=== PATIENT | female | born 1990 | race African-American/Black ===

== ENCOUNTER 2025-08-17 09:10 | Emergency (ER) | payer OTHER, SELFPAY ==
--- OUTSIDE RECORDS SUMMARY | 2024-01-09 06:45 | XMS_ITS | Continuity of Care Document ---
Author Organization [facility] Address [address] [place] [address] Phone Care Team Providers Care Fisher Crab Name Role Phone Dara Montague DDS Unavailable Unavailable Allergies, Adverse Reactions, Alerts Substance Reaction Status Criticality No Known Allergies Active No Inform ation Medications Medication Instructions Dosage Effective Dates (start - stop) Status Comments ibuprofen 600 mg tablet take 1 tablet by oral route 3 times every day with food as needed 600 MG - Active amoxicillin 500 mg capsule take 1 capsule by oral route every 8 hours 500 MG - No Longer Active Procedures Procedure Date Limited Oral Eval Bitewings-two Films Intraoral-periapical 1st Film 4 Eemnwkqkn-lusvkrrepx-ikvv Additional Dec Qfqxvzpev-muoqhmgywa-ozlo Additional Dec Oral Hygiene Instruction Intraoral-periapical 1st Film 3 Bitewig-single Film Oral Hygiene Instruction Limited Oral Eval EST FP MEDICAID RISK ASSISSMENT OFFICE/OUTPATIENT VISIT, EST URINE TEST OFFICE/OUTPATIENT VISIT, EST URINE TEST EST FP MEDICAID ODH SPECIMEN HANDLING (GC/CHLAMYDIA) Aug URINE TEST ROUTINE VENIPUNCTURE CARE COORDINATION OFFICE/OUTPATIENT VISIT, EST SPECIMEN HANDLING RISK ASSISSMENT CARE COORDINATION ROUTINE VENIPUNCTURE OFFICE/OUTPATIENT VISIT, EST CARE COORDINATION SPECIMEN HANDLING CARE COORDINATION OFFICE/OUTPATIENT VISIT, EST OFFICE/OUTPATIENT VISIT, EST RISK ASSISSMENT CARE COORDINATION ROUTINE VENIPUNCTURE OFFICE/OUTPATIENT VISIT, EST URINE TEST OFFICE/OUTPATIENT VISIT, EST ROUTINE VENIPUNCTURE SPECIMEN HANDLING RISK ASSISSMENT CARE COORDINATION OFFICE/OUTPATIENT VISIT, EST ROUTINE VENIPUNCTURE CARE COORDINATION OFFICE/OUTPATIENT VISIT, EST CARE COORDINATION OFFICE/OUTPATIENT VISIT, EST CARE COORDINATION OFFICE/OUTPATIENT VISIT, EST CARE COORDINATION OFFICE/OUTPATIENT VISIT, EST CARE COORDINATION ODH ROCEPHINE 250 MG (PER DOSE) - 009 OFFICE/OUTPATIENT VISIT, EST SPECIMEN HANDLING CARE COORDINATION ROUTINE VENIPUNCTURE RISK ASSISSMENT COUNSELING AND EDUCATION CARE COORDINATION OFFICE/OUTPATIENT VISIT, EST OFFICE/OUTPATIENT VISIT, EST URINE TEST BX/CURETT OF CERVIX W/SCOPE TISSUE EXAM BY PATHOLOGIST URINE TEST PREV VISIT, NEW, AGE 12-17 DESTRUCT PREMALG LESION URINALYSIS, NONAUTO W/SCOPE URINE TEST SPECIMEN HANDLING Advance Directives Directive Yes / No Effective Date File Name No Information Encounters Encounter Description Practice Location Reason(s) For Visit Diagnoses Date Provider Providers Copied on Encounter [facility], [address], [place], [id number], [place] tel:[phone] [facility] Dental Clinic dl (chief complaint) Encounter for screening for dental disorders Clari Diamond. . tel:[phone] [facility], [address], [place], [id number], [place] tel:[phone] [facility] Dental Clinic DL (chief complaint) Encounter for screening for dental disorders Clari SHAH Ravindra. [address], [place], [id number], [place]. [phone] [facility], [address], [place], [id number], [place] tel:[phone] [facility] No Information Lamp Lizzy. [address], [place], [id number], [place]. tel:[phone] OFFICE/OUTPAT IENT VISIT, [facility], [address], [place], [id number], [place] tel:[phone] [facility] No Information Lamp Lizzy. [address], [place], [id number], [place]. [phone] OFFICE/OUTPAT IENT VISIT, [facility], [address], [place], [id number], [place] tel:[phone] [facility] No Information Lamp Lizzy. [address], [place], [id number], [place]. tel:[phone] [facility], [address], [place], [id number], [place] tel:[phone] [facility] No Information Lamp Lizzy. [address], [place], [id number], [place]. tel:[phone] [facility], [address], [place], [id number], [place] tel:[phone] [facility] No Information Visci DO Contreras. [address] [facility], [place], [place], [id number], [place]. tel:[phone] OFFICE/OUTPAT IENT VISIT, [facility], [address] [facility], [place], [place], [id number], [place] tel:[phone] [facility] No Information Megan ROSASTal Eubanks. [address] [facility], [place], [place], [id number]. tel:[phone] OFFICE/OUTPAT IENT VISIT, [facility], [address] [facility], [place], [place], [id number], [place] tel:[phone] [facility] No Information Brayan Joy. [address], [place], [id number]. tel:[phone] OFFICE/OUTPAT IENT VISIT, [facility], [address], [place], [id number], [place] tel:[phone] [facility] No Information Mariogloria RALPHTal Eubanks. [address], [place], [id number]. tel:[phone] OFFICE/OUTPAT IENT VISIT, [facility], [address], [place], [id number], [place] tel:[phone] [facility] No Information Keshia Ball. [address], [place], [id number], [place]. tel:[phone] OFFICE/OUTPAT IENT VISIT, [facility], [address], [place], [id number], [place] tel:[phone] [facility] No Information Visci DO Contreras. [address], [place], [id number], [place]. tel:[phone] OFFICE/OUTPAT IENT VISIT, [facility], [address], [place], [id number], [place] tel:[phone] [facility] No Information Kwesi Hernandez. [address], [place], [id number], [place]. tel:[phone] OFFICE/OUTPAT IENT VISIT, [facility], [address], [place], [id number], [place] tel:[phone] [facility] No Information Kwesi Hernandez. [address], [place], [id number], [place]. tel:[phone] OFFICE/OUTPAT IENT VISIT, [facility], [address], [place], [id number], [place] tel:[phone] [facility] No Information Kwesi Hernandez. [address], [place], [id number], [place]. tel:[phone] OFFICE/OUTPAT IENT VISIT, [facility], [address], [place], [id number], [place] tel:[phone] [facility] No Information Kwesi Hernandez. [address], [place], [id number], [place]. tel:[phone] OFFICE/OUTPAT IENT VISIT, [facility], [address], [place], [id number], [place] tel:[phone] [facility] No Information Brayan Joy. [address], [place], [id number]. tel:[phone] OFFICE/OUTPAT IENT VISIT, [facility], [address], [place], [id number], [place] tel:[phone] [facility] No Information Kwesi Hernandez. [address], [place], [address], [place]. tel:[phone] OFFICE/OUTPAT IENT VISIT, [facility], [address], [place], [id number], [place] tel:[phone] [facility] No Information Brayan Joy. [address], [place], [id number]. tel:[phone] OFFICE/OUTPAT IENT VISIT, [facility], [address], [place], [id number], [place] tel:[phone] [facility] No Information Kwesi Hernandez. [address], [place], [id number], [place]. tel:[phone] OFFICE/OUTPAT IENT VISIT, [facility], [address], [place], [id number], [place] tel:[phone] [facility] No Information Kwesi Hernandez. [address], [place], [id number], [place]. tel:[phone] [facility], [address], [place], [id number], [place] tel:[phone] [facility] No Information Javieri DO Contreras. [address], [place], [id number], [place]. tel:[phone] PREV VISIT, NEW, AGE 12-17 [facility], [address], [place], [id number], [place] tel:[phone] [facility] No Information Brayan Joy. [address], [place], [id number]. tel:[phone] Family History Family Member Type Diagnosis Age At Onset No Information Payers Payer name Insurance type Covered alliance party ID Girish plasencia(s) Carlos [employer] [facility] [id number] D Medicaid [facility] [id number] Social History Type Description Quantity Date Captured Comments Alcohol Use Details Unknown Caffeine Use Details Unknown Tobacco Use Status No Information Smoking Status No Information Sex Female Sexual Orientation Straight or heterosexual Gender Identity Female Chief Complaint And Reason For Visit From encounter dated '01/09/2024 11:45'. dl (chief complaint) Reason For Referral Reason For Referral No Information Plan Of Treatment Date Type Action Status Goal Depression screening. Due on due Goal Influenza vaccine. Due on Ap due Goal Hepatitis C screening. Due o n due Goal PRAPARE ASSESSMENT. Due on A due Goal HPV. Due on due Goal Tdap. Due on due Goal Unhealthy drug use screening . Due on due Goal RLP. Due on due Goal Tdap Vaccine. Due on 2023 due Goal Hep A. Due on du e Goal PRAPARE ASSESSMENT. Due on S due Goal Hep A. Due on du e Goal Depression screening. Due on due Goal RLP. Due on due Goal Tdap. Due on due Goal Tdap Vaccine. Due on 2022 due Goal Influenza vaccine. Due on due History Of Present Illness Encounter Date Complaint History Of Prese nt Illness dl DL DL Functional Status Date Functional Assessmen t No Information Instructions Date Instruction Additional Infor mation No Information Assessments Type Assessment Date No Information Patient Care Teams Name Effective Dates (start - stop) Status Members No Information
[2025-08-17 09:15] VITALS: BP 130/96; PULSE 70; TEMP 36.7; O2SAT 98; BMI 35.0
--- NOTE | 2025-08-17 09:27 | XR_ITS ---
The [address] [address] Patient Name: VERNA PERRY MRN: [id number] date: 1990 Sex: F Assigned Patient Location: ER Current Patient Location: ER Accession/Order Number: [id number] Exam Date: 08/17/2025 10:05 Report Date: 08/17/2025 10:45 At the request of: EYAL MICHAELS MD Procedure: XR chest 1V PA CHEST: CLINICAL HISTORY: Altered mental status COMPARISON: None FINDINGS: Unremarkable cardiomediastinal silhouette. Lungs are clear. No effusion or pneumothorax. XR/XR chest 1V IMPRESSION: NEGATIVE FOR ACUTE PLEURAL-PARENCHYMAL DISEASE. Impression dictated by: Ze Jaramillo M.D. 08/17/2025 10:45 AM Dictation Location: [place] [address] Electronically authenticated by: [id number] Y Date: 08/17/2025 10:45
--- NOTE | 2025-08-17 09:27 | ECG_ITS ---
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 Measurements Intervals [place] Rate: 87 P: 57 KS: 126 QRS: 47 QRSD: 86 T: 20 QT: 348 QTc: 392 Interpretive Statements 1100 Sinus rhythm 9110 normal ECG No previous ECG available for comparison Electronically Signed On 08-17-2025 21:11:54 EST by VARGAS MURILLO M.D.
--- NOTE | 2025-08-17 09:27 | CT_ITS ---
The [address] [address] Patient Name: VERNA PERRY MRN: [id number] date: 1990 Sex: F Assigned Patient Location: ER Current Patient Location: ER Accession/Order Number: [id number] Exam Date: 08/17/2025 10:20 Report Date: 08/17/2025 10:47 At the request of: EYAL MICHAELS MD Procedure: CT head/brain wo con CT BRAIN WITHOUT CONTRAST: CLINICAL HISTORY: Altered mental status COMPARISON: None TECHNIQUE: Contiguous axial unenhanced images were obtained through the brain. This CT exam was performed using one or more following dose reduction techniques: Automated exposure control, adjustment of the mA and/or kV according to patient size, or use of iterative reconstruction technique. FINDINGS: There is no evidence of midline shift, intra or extra-axial fluid collection, hemorrhage or CT evidence of of acute large vascular distribution stroke. Visualized intraorbital contents appear unremarkable. Moderate multifocal sinus disease noted with sparing left frontal sinus. Multifocal air-fluid levels noted. Mastoids are clear. The surrounding soft tissues are normal. No calvarial fracture. CT/CT head/brain wo con IMPRESSION: NO ACUTE INTRACRANIAL ABNORMALITY. MULTIFOCAL PARANASAL SINUS DISEASE WITH AIR-FLUID LEVELS SUGGESTING ACUTE BACTERIAL SINUSITIS. Impression dictated by: Ze Jaramillo M.D. 08/17/2025 10:47 AM Dictation Location: [place] [address] Electronically authenticated by: [id number] Y Date: 08/17/2025 10:47
--- NOTE | 2025-08-17 09:28 | ED.GENADUL1 ---
HPI HPI - General Adult General Chief complaint: Nausea/Vomiting/Diarrhea Stated complaint: VOMITING Time Seen by Provider: 08/17/25 09:20 Source: patient Mode of arrival: Wheelchair History of Present Illness HPI narrative: 35-year-old female presented to the emergency department for confusion. She states that she does not really remember much of what happened last night but she remembers standing on the side of the road and she went to a gas station and she got somebody to give her a ride here. She states she went to two hole in the wall bars last night. She does not seem to have any pain or physical complaints. Related Data Home Medications ?Medication ?Instructions ?Recorded ?Confirmed albuterol sulfate 90 mcg/actuation inhalation 08/17/25 aerosol inhaler cholecalciferol (vitamin D3) 25 08/17/25 mcg (1,000 unit) tablet ferrous sulfate 325 mg (65 mg mg 08/17/25 iron) tablet Allergies Allergy/AdvReac Type Severity Reaction Status Date / Time No Known Drug Allergies Allergy Verified 08/17/25 09:19 Opioid HPI Opioid Management Most Recent Opioid Data: Ur Phencyclidine Scrn, (NEGATIVE) Negative Today, 11:12 Review of Systems ROS Narrative A ten point review of systems is negative except as noted above. Exam Narrative Exam Narrative: Nurses note and vital signs reviewed General:The patient appears in no apparent distress. Patient is resting comfortably on cart. Skin:Warm, dry, no pallor noted.There is no rash noted. Head:Normocephalic, atraumatic Eye: Normal conjunctiva, no drainage Ears, Nose, Mouth, and Throat: oral mucosa is moist. Nares patent. Cardiovascular:Regular Rate and Rhythm Respiratory:Patient is in no distress, no accessory muscle use, lungs are clear to auscultation, no wheezing, rales or rhonchi Back:non-tender GI:Normal bowel sounds, no tenderness to palpation, no masses appreciated.No rebound, guarding, or rigidity noted. Musculoskeletal: No palpable tenderness to extremity Neurological: Awake and alert. She knows she is in a hospital but does not know which one. She thought it was 2022 but knows that she recently had a birthday. Her birthday was [birth year]. She moves all 4 extremities well Psychiatric:Cooperative Constitutional Vital Signs, click to edit/add: Last Vital Signs Temp 98.1 F 08/17/25 09:15 Pulse 70 08/17/25 09:15 Resp 20 08/17/25 09:15 BP 130/96 H 08/17/25 09:15 Pulse Ox 98 08/17/25 09:15 Course Vital Signs Vital signs: Vital Signs Temperature 98.1 F 08/17/25 09:15 Pulse Rate 70 08/17/25 09:15 Respiratory Rate 20 08/17/25 09:15 Blood Pressure 130/96 H 08/17/25 09:15 Pulse Oximetry 98 08/17/25 09:15 Temperature 98.1 F 08/17/25 09:15 Pulse Rate 70 08/17/25 09:15 Respiratory Rate 20 08/17/25 09:15 Blood Pressure 130/96 H 08/17/25 09:15 Pulse Oximetry 98 08/17/25 09:15 Medical Decision Making MDM Narrative Medical decision making narrative: The patient's workup was completely negative. At 11:30 AM I asked her what month and what year it is and she cannot tell me. I then told her that she should not be leaving if she does not know the month and year and she was quickly able to tell me the month and year. She is discharged in the care of her friend. Differential Diagnosis Differential Diagnosis: Altered mental status, substance abuse Lab Data Lab results reviewed: Yes I reviewed the patient's lab results Labs: Lab Results 08/17/25 08/17/25 Range/Units 09:37 11:12 WBC 5.3 (4.0-11.0) 10^3/uL RBC 3.97 L (4.20-5.40) 10^6/uL Hgb 11.6 L (12.0-16.0) g/dL Hct 35.4 L (36.0-48.0) % MCV 89.2 (81.0-99.0) fL MCH 29.2 (26.7-34.0) pg MCHC 32.8 (29.9-35.2) g/dL RDW 15.0 (11.0-15.0) % Plt Count 307 (150-450) 10^3/uL MPV 10.8 (9.5-13.5) fL Neut % (Auto) 49.7 (43.0-75.0) % Lymph % (Auto) 35.8 (20.5-60.0) % [place] % (Auto) 9.6 (1.7-12.0) % Eos % (Auto) 4.3 (0.9-7.0) % Baso % (Auto) 0.6 (0.2-2.0) % Neut # (Auto) 2.6 (1.4-6.5) 10^3/uL Lymph # (Auto) 1.9 (1.2-3.8) 10^3/uL [place] # (Auto) 0.5 (0.3-0.8) 10^3/uL Eos # (Auto) 0.2 (0.0-0.7) 10^3/uL Baso # (Auto) 0.0 (0.0-0.1) 10^3/uL Abs Immat Gran (auto) 0.00 (0.00-0.03) 10^3/uL Imm/Tot Granulo (auto) 0.0 (0.0-0.5) % Sodium 147 H (136-145) mmol/L Potassium 3.6 (3.5-5.1) mmol/L Chloride 111 H (98-107) mmol/L Carbon Dioxide 26.3 (21.0-32.0) mmol/L Anion Gap 13.3 BUN 9.0 (7.0-18.0) mg/dL Creatinine 0.78 (0.55-1.02) mg/dL Est GFR ( Amer) >60 (>=60 mL/min/1.73m^2) Est GFR (Non-Af Amer) >60 (>=60 mL/min/1.73m^2) BUN/Creatinine Ratio 11.5 Glucose 100 (74-106) mg/dL Calcium 8.3 L (8.5-10.1) mg/dL Serum HCG, Qual Negative (NEGATIVE) Urine Color Lt. yellow (YELLOW) Urine Clarity Clear (CLEAR) Urine pH 7.0 (5.0-9.0) Ur Specific [place] 1.010 (1.005-1.025) Urine Protein Negative (NEG/TRACE) mg/dL Urine Glucose (UA) Negative (NEGATIVE) mg/dL Urine Ketones Negative (NEGATIVE) mg/dL Urine Occult Blood Small A (NEGATIVE) Urine Nitrite Negative (NEGATIVE) Urine Bilirubin Negative (NEGATIVE) Urine Urobilinogen 0.2 (0.2-1.0) EU/dL Ur Leukocyte Esterase Trace A (NEGATIVE) Urine RBC 2-5 A (0-2) #/HPF Urine WBC 0-2 A (NONE SEEN) #/HPF Ur Squamous Epith Cells Few A (NONE/RARE) #/LPF Urine Crystals None seen (None Seen) #/HPF Urine Bacteria Trace A (NONE SEEN) #/HPF Urine Casts None seen (NONE SEEN) #/LPF Urine Mucus None seen (NONE SEEN) Ur Culture Indicated? No Urine Opiates Screen Negative (NEGATIVE) Ur Buprenorphine Scrn Negative (NEGATIVE) Ur Oxycodone Screen Negative (NEGATIVE) Urine Methadone Screen Negative (NEGATIVE) Ur Barbiturates Screen Negative (NEGATIVE) U Tricyclic Antidepress Negative (NEGATIVE) Ur Phencyclidine Scrn Negative (NEGATIVE) Ur Amphetamines Screen Negative (NEGATIVE) U Methamphetamines Scrn Negative (NEGATIVE) U Benzodiazepines Scrn Negative (NEGATIVE) Urine Cocaine Screen Negative (NEGATIVE) U Cannabinoids Screen Negative (NEGATIVE) Imaging Data Chest x-ray: Radiologist's impression: ITS Impressions Chest X-Ray 08/17/25 09:27 IMPRESSION: NEGATIVE FOR ACUTE PLEURAL-PARENCHYMAL DISEASE. Impression dictated by: Ze Jaramillo M.D. 08/17/2025 10:45 AM Dictation Location: [employer] Electronically authenticated by: [id number] Y Date: 08/17/2025 10:[address] 08/17/25 09:27 IMPRESSION: NO ACUTE INTRACRANIAL ABNORMALITY. MULTIFOCAL PARANASAL SINUS DISEASE WITH AIR-FLUID LEVELS SUGGESTING ACUTE BACTERIAL SINUSITIS. Impression dictated by: Ze Jaramillo M.D. 08/17/2025 10:47 AM Dictation Location: [employer] Electronically authenticated by: [id number] Y Date: 08/17/2025 10:47 ECG Data Attestation: I personally reviewed and interpreted this ECG as follows: (EKG on my interpretation shows sinus rhythm with rate of 87 and no acute change) Discharge Plan Discharge Chief Complaint: Nausea/Vomiting/Diarrhea Clinical Impression: Altered mental status Patient Disposition: Home, Self-Care Time of Disposition Decision: 11:35 Condition: Good Mode of Transportation: Private Vehicle Prescriptions / Home Meds: No Action ferrous sulfate 325 mg (65 mg iron) tablet albuterol sulfate 90 mcg/actuation HFA aerosol inhaler INHALATION cholecalciferol (vitamin D3) 25 mcg (1,000 unit) tablet Print Language: Occitan Instructions: Altered Mental Status (ED) Referrals: Physician,Non-Staff, MD [Primary Care Provider] - 1 week
[2025-08-17 09:55] LABS: Hematocrit 35.4 % (36.0-48.0); Hemoglobin 11.6 g/dL (12.0-16.0); Immature Granulocytes Abs Auto 0.00 10^3/uL (0.00-0.03); Immature Granulocytes Pct Auto 0.0 % (0.0-0.5); Lymphocytes Absolute Auto 1.9 10^3/uL (1.2-3.8); Mean Corpuscular HGB Conc 32.8 g/dL (29.9-35.2); Mean Corpuscular Hemoglobin 29.2 pg (26.7-34.0); Mean Corpuscular Volume 89.2 fL (81.0-99.0); Platelet Count 307 10^3/uL (150-450); Red Blood Count 3.97 10^6/uL (4.20-5.40); White Blood Count 5.3 10^3/uL (4.0-11.0)
[2025-08-17 10:00] LABS: Anion Gap 13.3; Blood Urea Nitrogen 9.0 mg/dL (7.0-18.0); Calcium 8.3 mg/dL (8.5-10.1); Carbon Dioxide 26.3 mmol/L (21.0-32.0); Chloride 111 mmol/L (98-107); Estimated GFR (African America >60 (>=60 mL/min/1.73m^2); Estimated GFR (Non-African Ame >60 (>=60 mL/min/1.73m^2); Glucose 100 mg/dL (74-106); Potassium 3.6 mmol/L (3.5-5.1); Sodium 147 mmol/L (136-145)
[2025-08-17] MEDS: 0.9 % SODIUM CHLORIDE 1,000 ML 1000 ML IV (10:00)
--- OUTSIDE RECORDS SUMMARY | 2025-08-17 10:17 | XMS_ITS | Clinical Summary ---
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 Role Phone No Pcp, No Pcp Primary Care Provider Unavailabl e Social History Tobacco UseTypesPacks/DayYears UsedDateSmoking Tobacco: Never AssessedChildcare AnswerDate LbnwycheEthfldajoUhbyazt15/12/2019EmploymentAnswerDate Recorded QeldiltfwyXkdhcas65/12/2019Purpose - LifeAnswerDate RecordedPurpose and direction in footRjtrabx85/11/2021CommentsUnknownSex and Gender InformationValueDate RecordedSex Assigned at BirthNot on fileLegal SexFemale 05/23/2019 9:41 AM EDTGender IdentityNot on fileSexual OrientationNot on file Plan of Treatment Health MaintenanceDue DateLast DoneCommentsDepression Mpdynestx97/27/2004Tobacco Uyzroaryu60/27/2004Adult BMI Kdzupulel91/27/2010DTaP,Tdap and Td Vaccines (1 - Tdap)2011Pap Smear2013Influenza Dfmosgg6005/12/2025 Medical Devices Not on file Insurance Care Teams Team MemberRelationshipSpecialtyStart DateEnd Date No Pcp, [place] [address] [facility] - [facility]19
--- OUTSIDE RECORDS SUMMARY | 2025-08-17 10:17 | XMS_ITS | Clinical Summary ---
Author Organization [facility] Healthcare Address [address] [place] [address] Care Team Providers Care Tool Worker Name Role Phone Unallocated, Noms Provider MD Primary Care Provi lionel Allergies Active AllergyReactionsCriticalityNoted DateCommentsLevonorgestrel-Ethinyl AxrxmaAkkliwpSsn82/02/2024 Patient states she has never had a reaction to this Medications MedicationSigDispense QuantityRefillsLast FilledStart DateEnd DateStatus ibuprofen 800 MG tablet TAKE 1 TABLET BY MOUTH EVERY 8 HOURS WITH FOOD OR MILK [id number] Advair Diskus 100-50 MCG/ACT aerosol powder 5Active ferrous sulfate 325 (65 Fe) MG tablet Take 1 tablet by mouth in the morning and 1 tablet before bedtime.10/11/2024 Active albuterol HFA 90 mcg/act inhaler TAKE 2 PUFFS BY MOUTH EVERY 4 HOURS [id number] tretinoin (Retin-A) 0.025 % cream Indications:Acne vulgarisApply thin layer ( 1 g) to face,once daily at evening/night time. Wash off in the morning. 30 day supply 20 g 1105Active Fluocinolone Acetonide Scalp (fluocinolone) 0.01 % oil Indications:AlopeciaApply ( 2 ml) to scalp, up to twice a day for flares, 30 day supply 118.28 mL 5Active ondansetron ODT (Zofran-ODT) 4 MG disintegrating tablet DISSOLVE 1 TABLET ON TONGUE EVERY 6 HOURS IGUAYE955Active Hrsjaemydet-Vnsusmura-Wzgqgd (Trelegy Ellipta) 200-62.5-25 MCG/ACT aerosol powder Indications:Moderate persistent asthma without complication (HCC)Inhale 1 puff Daily 60 each 5065Active tiotropium (Spiriva Respimat) 1.25 MCG/ACT inhaler Indications:Moderate persistent asthma without complication (HCC)Inhale 2 puffs Daily 1 each 508//608371/6Active Active Problems No known active problems Resolved Problems ProblemNoted DateDiagnosed DateResolved DateAbnormal /02/2025 Fctwcmcgie38/06/202506/sthma without status zvpjnzlazjx40/06/2025 02/14/2025hronic fatigue hauegyrb66/02/2025 Encounters DateTypeDepartmentCare GlggIekdqobelbe94/10/2025 1:05 PM ESTOffice Visit [facility] [address] [place] [phone] Krystal Lopez APRN-CNP Acne vulgaris (Primary Dx); Fgvisfsd48/10/2025amboo flowsheet [facility] [address] [place] [phone] Krystal Lopez APRN-CNP 07/21/2025Travelfrom Last 3 Months Family History Medical HistoryRelationNameCommentsBreast cancerMotherRelationNameStatusComments FatherAliveMotherDeceased Social History Tobacco UseTypesPacks/DayYears UsedDateSmoking Tobacco: NeverSmokeless Tobacco: Never Tobacco Cessation:Counseling Given: Yes Alcohol UseStandard Drinks/WeekCommentsNot Currently0 (1 standard drink = 0.6 oz pure alcohol)Caffeine intake: RareAUDIT-CAnswerDate RecordedQ1: How often do you have a drink containing alcohol?Never01/11/2024Q2: How many drinks containing alcohol do you have on a typical day when you are drinking?Patient does not drink01/11/2024Q3: How often do you have six or more drinks on one occasion? Never01/11/2024HQ-2AnswerDate RecordedPatient Health Questionnaire-2 Score0 4CommentsNoSex and Gender InformationValueDate RecordedSex Assigned at BirthNot on fileLegal SwmYevjge28/15/2023 7:00 PM EDTGender Identity Not on fileSexual OrientationNot on file Last Filed Vital Signs Vital SignReadingTime TakenCommentsBlood Fcteneex302/7402/19/2025 9:00 AM EDT Twgth374402/19/2025 9:00 AM EDTTemperature--Respiratory Rate--Oxygen Egiigcprxz41% 02/19/2025 9:00 AM EDTInhaled Oxygen Concentration--Bkcmsc511 kg (226 lb) 02/19/2025 9:00 AM JJCGlkako849.7 cm (5' 8 )02/19/2025 9:00 AM EDTBody Mass Index34.36002/19/2025 9:00 AM EDT Plan of Treatment DateTypeDepartmentCare Team (Latest Contact Info)Pkixlupyksv38/11/2025 3:45 PM ESTOffice Visit [facility] [address] [place] [address] Krystal Lopez, RESOURCE DEVELOPMENT MANAGER-PUBLIC ADDRESS SERVICER [address] [place] [address] 11/17/2025 3:35 PM EDTOffice Visit [facility] [address] [place] [address] Krystal Lopez, RESOURCE DEVELOPMENT MANAGER-PUBLIC ADDRESS SERVICER [address] [place] [address] Health MaintenanceDue DateLast DoneCommentsPneumococcal Vaccine: Pediatrics (0 to 5 Years) and At-Risk Patients (6 to 64 Years) (1 of 2 - PCV)2011COVID- 19 Vaccine (1 - 2024- season)2025Influenza Vaccine (#1)2025Pap Smear/ervical Cancer Voctdetqh86/02/2029HPV/Fuugko3301/10/2029 01/11/2024, 03/24/2021 Procedures Procedure NamePriorityDate/TimeAssociated DiagnosisCommentsTHINPREP TIS PAP AND HPV MRNA E6/K3Vrjghjs81/02/2024 3:37 PM EDT Screening for malignant neoplasm of cervix Encounter for gynecological examination without abnormal finding from Last 3 Months or Most Recently Relevant to Health Maintenance Results * (ABNORMAL) THINPREP TIS PAP AND HPV MRNA E6/E7 (01/11/2024 3:37 PM EDT) ComponentValueRef RangeTest MethodAnalysis TimePerformed AtPathologist SignatureCLINICAL INFORMATIONQUESTComment:None givenLMPQUESTComment:NONE GIVEN PREV. PAPQUESTComment:NONE GIVENPREV. BXQUESTComment:NONE GIVENSOURCEQUEST Comment:None givenSTATEMENT OF ADEQUACYQUESTComment: Satisfactory for evaluation. Endocervical/transformation zone component present. INTERPRETATION/RESULTQUESTComment: Cytology Results: Negative for intraepithelial lesion or malignancy. COMMENTQUESTComment: This Pap test has been evaluated with computer assisted technology. CYTOTECHNOLOGISTQUESTComment: Reference Range: ZL, CT(ASCP) CT screening location: [facility] [place] [address]. REVIEW CYTOTECHNOLOGISTQUESTComment: PCJ, SCT(ASCP) CT screening location: [facility] [place] [address]. (ALWAYS MESSAGE)QUESTComment: EXPLANATORY NOTE: The Pap is a screening test for cervical cancer. It is not a diagnostic test and is subject to false negative and false positive results. It is most reliable when a satisfactory sample, regularly obtained, is submitted with relevant clinical findings and history, and when the Pap result is evaluated along with historic and current clinical information. HPV MRNA E6/D3Knkgvjfq(A)Not DetectedQUESTComment: Methodology: Grey Tender-Mediated Amplification This assay detects E6/E7 viral messenger RNA (mRNA) from 14 high-risk HPV types (16,18,31,33,35,39,45,51,52,56,58,59,66,68). Cervical sources are required for HPV testing. If a vaginal source from a patient who has had a total hysterectomy with removal of cervix was submitted, please contact the testing laboratory for alternative testing options. For additional information, please refer to http://education.[employer].MailFrontier/faq/TNR842q8 (This link if provided for information/ educational purposes only.) Specimen (Source)Anatomical Location / LateralityCollection Method / Volume Collection TimeReceived MtvwTahh59/02/2024 3:37 PM EDT01/12/2024 3:22 AM EDT Narrative Resulting Agency Comment Performing Organization Information ?Site ID: [id number] ?Name: [facility] ?Address: [address] [place] [address], [address] [place] [id number] ?Director: Ramses Winkler MD Authorizing ProviderResult TypeResult StatusGénesis Castellanos MDLAB CYTOLOGY ORDERABLESFinal ResultPerforming OrganizationAddressCity/State/ZIP CodePhone Number [facility] from Last 3 Months or Most Recently Relevant to Health Maintenance Insurance Care Teams Team MemberRelationshipSpecialtyStart DateEnd Date Unallocated, Noms MD Heather [address] [place], [place] [phone] PCP - GeneralFamily Medicine12/21/23
[2025-08-17 11:21] LABS: Glucose Urine UA NEGATIVE (NEGATIVE)
[2025-08-17 11:32] LABS: Cannabinoid Screen Urine NEGATIVE (NEGATIVE); Cast Seen? NONE SEEN #/LPF (NONE SEEN); Crystals Seen? None Seen #/HPF (None Seen); Methamphetamines Screen Urine NEGATIVE (NEGATIVE); Tricyclic Antidepressant Urine NEGATIVE (NEGATIVE); Urine Culture Indicated NO
== END 2025-08-17 11:40 | disposition home or self-care (01) ==
PROVIDERS: Emergency Provider Emergency Medicine
DX: R41.82 Altered mental status, unspecified (principal)
CPT/HCPCS: 36415; 70450; 71045; 80048; 80307; 81001; 84703; 85025; 93005; 99285; Q9967